=== PATIENT | male | born 1940 | race Caucasian/White ===

== ENCOUNTER 2020-02-11 13:12 | Inpatient (IN) | payer MEDICARE ==
--- NOTE | 2020-02-11 14:06 | EKG REPORT ---
SEVERITY:- ABNORMAL ECG - SINUS RHYTHM ATRIAL PREMATURE COMPLEX RIGHT BUNDLE BRANCH BLOCK BORDERLINE ST DEPRESSION, LATERAL LEADS : Confirmed by: Edmund Noriega MD 11-Feb-2020 14:05:49
--- NOTE | 2020-02-11 14:27 | RADIOLOGY REPORT (SQ) ---
EXAM DESCRIPTION: CHEST SINGLE VIEW IMAGES COMPLETED DATE/TIME: 02/11/2020 12:57 pm REASON FOR STUDY: chest pain COMPARISON: None. EXAM PARAMETERS: NUMBER OF VIEWS: One view. TECHNIQUE: Single frontal radiographic view of the chest acquired. RADIATION DOSE: NA LIMITATIONS: None. FINDINGS: LUNGS AND PLEURA: Mild ill-defined opacities in a peripheral distribution both lungs. Sandra gs are hyperinflated. No pleural effusion or pneumothorax. MEDIASTINUM AND HILAR STRUCTURES: No masses. Contour normal. HEART AND VASCULAR STRUCTURES: Heart normal in size. Normal vasculature. BONES: No acute findings. HARDWARE: None in the chest. OTHER: No other significant finding. IMPRESSION: Mild patchy peripheral opacities in both lungs may represent infectious/ inflammatory pr ocess. TECHNICAL DOCUMENTATION: JOB ID: [id number] 2010 [employer]- All Rights Reserved Reading location - IP/workstation name: [email or web address]
[2020-02-11 14:30] LABS: ABSOLUTE EOSINOPHILS # (AUTO) 0.1 10^3/uL (0.0-0.6); ABSOLUTE LYMPHOCYTES (AUTO) 0.6 10^3/uL (0.5-4.7); ABSOLUTE MONOCYTES (AUTO) 0.8 10^3/uL (0.1-1.4); ABSOLUTE NEUT (AUTO) 7.1 10^3/uL (1.7-8.2); BASOPHILS % (AUTO) 0.2 % (0-2); EOSINOPHILS % (AUTO) 1.1 % (0-6); HEMATOCRIT 34.6 % (37.9-51.0); HEMOGLOBIN 11.9 g/dL (13.5-17.0); LYMPHOCYTES % (AUTO) 7.1 % (13-45); MEAN CORPUSCULAR HEMOGLOBIN 30.8 pg (27.0-33.4); MEAN CORPUSCULAR HGB CONC 34.4 g/dL (32.0-36.0); MEAN CORPUSCULAR VOLUME 90 fl (80-97); MONOCYTES % (AUTO) 9.2 % (3-13); PLATELET COUNT 201 10^3/uL (150-450); RED BLOOD COUNT 3.86 10^6/uL (4.35-5.55); RED CELL DISTRIBUTION WIDTH 13.4 % (11.5-14.0); SEGMENTED NEUTROPHILS % (AUTO) 82.4 % (42-78); TOTAL CELLS COUNTED % (AUTO) 100 %; WHITE BLOOD COUNT 8.6 10^3/uL (4.0-10.5)
[2020-02-11 14:49] LABS: ALKALINE PHOSPHATASE 72 U/L (38-126); ANION GAP 6 (5-19); ASPARTATE AMINO TRANSFERASE 43 U/L (17-59); BILIRUBIN,TOTAL 0.4 mg/dL (0.2-1.3); BLOOD UREA NITROGEN 27 mg/dL (7-20); CALCIUM 9.3 mg/dL (8.4-10.2); CARBON DIOXIDE 30 mmol/L (22-30); CHLORIDE 93 mmol/L (98-107); CREATINE KINASE 227 U/L (55-170); GLUCOSE 143 mg/dL (75-110); POTASSIUM 4.3 mmol/L (3.6-5.0); TOTAL PROTEIN 7.7 g/dL (6.3-8.2)
[2020-02-11 14:59] LABS: CREATINE KINASE MB 5.58 ng/mL (<4.55); TROPONIN I 0.021 ng/mL
[2020-02-11] MEDS ORDERED: NITROGLYCERIN 2% OINTMENT 1 GM PACKET TP ONE (15:24)
[2020-02-11] MEDS ORDERED: ENALAPRILAT DIHYDRATE INJ/PF 1.25 MG/1 ML SDV IV ONE (15:24)
[2020-02-11] MEDS ORDERED: FUROSEMIDE INJ/PF 20 MG/2 ML SDV IV ONE (15:24)
[2020-02-11] MEDS ORDERED: ASPIRIN 81 MG TABLET, CHEWABLE PO ONE (15:25)
[2020-02-11 15:54] LABS: INTERNATIONAL RATION (INR) 1.77; PROTHROMBIN TIME 20.7 SEC (11.4-15.4)
[2020-02-11] MEDS ORDERED: IPRATROPIUM/ALBUTEROL 0.5-2.5 MG/3 ML AMPUL NEB ONE (15:54)
[2020-02-11] MEDS ORDERED: ONDANSETRON HCL INJ/PF 4 MG/2 ML SDV IV ONE (15:55)
[2020-02-11] MEDS ORDERED: MORPHINE SULFATE 10 MG/ML INJ IV ONE (15:55)
[2020-02-11] MEDS ORDERED: MAGNESIUM OXIDE 400 MG TABLET PO ONE (16:55)
--- NOTE | 2020-02-11 17:09 | ER Document Report ---
Entered by GABBI TRIPATHI SCRIBE 02/11/20 1525 Acting as scribe for:DELMAR STEVEN DO ED Respiratory Problem - General Chief Complaint: Chest Pain Stated Complaint: CHEST PAIN,SHORT OF BREATH Information source: Patient, Relative Notes: This 79 year old male patient presents to the emergency department today with a chief complaint of increased shortness of breath today. Patient states his sinuses had been congested the past x2-3 weeks and thought it was a sinus infection. Patient states the past x2-3 days he has been short of breath with exertion, such as walking to the mailbox, and reports increased shortness of breath today. Patient states he is on Coumadin (since 1987) and has checked his levels x4 the past week, with his last check 4.9 yesterday. Patient reports some swelling to his bilateral lower extremities L>R, and usually retains some fluid in his legs. Patient reports history of HTN, DM2, multiple pulmonary embolisms, and denies any fevers, history of heart disease, or stents. Patient states he is visiting here from [place]. - Related Data Allergies/Adverse Reactions: No Known Allergies Allergy (Unverified 02/11/20 14:16) Past Medical History - General Information source: Patient, Relative - Social History Smoking Status: Former Smoker Lives with: Family Family History: Reviewed & Not Pertinent - Past Medical History Cardiac Medical History: Reports: Hx Hypertension, Hx Pulmonary Embolism Denies: Hx Coronary Artery Disease Endocrine Medical History: Reports: Hx Diabetes Mellitus Type 2 Review of Systems - Review of Systems Constitutional: See HPI. denies: Fever EENT: See HPI, Nose congestion Cardiovascular: No symptoms reported Respiratory: See HPI, Short of breath Gastrointestinal: No symptoms reported Genitourinary: No symptoms reported Male Genitourinary: No symptoms reported Musculoskeletal: See HPI, Leg swelling - L>R Skin: No symptoms reported Hematologic/Lymphatic: No symptoms reported Neurological/Psychological: No symptoms reported -: Yes All other systems reviewed and negative Physical Exam - Vital signs Vitals: Temp Pulse Resp BP Pulse Ox 97.7 F 82 18 179/82 H 100 02/11/20 13:30 02/11/20 13:30 02/11/20 13:30 02/11/20 13:30 02/11/20 13:30 - General Notes: Alert. Appears uncomfortable and in mild-moderate distress from shortness of breath. - HEENT Head: Normocephalic, Atraumatic Eyes: Normal Pupils: PERRL - Respiratory Notes: Mild to moderate distress due to shortness of breath. Shortness of breath with conversation. Tachypnea. Minimal wheezing. Diminished breath sounds bilaterally. - Cardiovascular Rhythm: Regular Heart sounds: Normal auscultation Murmur: No - Abdominal Inspection: Obese Distension: No distension Bowel sounds: Normal Tenderness: Nontender - Extremities General upper extremity: Normal inspection, Normal ROM Notes: 3-4+ pitting edema to bilateral lower extremities. - Neurological Neuro grossly intact: Yes Cognition: Normal Orientation: AAOx4 Hooks Coma Scale Eye Opening: Spontaneous Hooks Coma Scale Verbal: Oriented Hooks Coma Scale Motor: Obeys Commands Adriane Coma Scale Total: 15 Speech: Normal Sensory: Normal - Psychological Associated symptoms: Normal affect, Normal mood - Skin Skin Temperature: Warm Skin Moisture: Diaphoretic Skin Color: Normal Course - Re-evaluation Re-evalutation: 02/11/20 17:05 MDM Elderly DM, htn, hld pt with acute dyspnea. He is sob at baseline and traveling. He has no known heart disease, but evaluation here is consistent with chf and he is treated for same with improvement of symptoms. Discussed with pt and and treatment plan and they expressed understanding. Discussed with Dr. Peck who has graciously agreed to see and evlauate for admission. - Vital Signs Vital signs: Temp Pulse Resp BP Pulse Ox 97.7 F 82 26 H 158/83 H 98 02/11/20 13:30 02/11/20 13:30 02/11/20 23:30 02/11/20 23:30 02/11/20 23:30 - Laboratory Results Result Diagrams: 02/11/20 13:54 02/11/20 13:54 Laboratory Results Interpreted: 02/11/20 02/11/20 02/11/20 13:54 13:54 13:54 RBC 3.86 L Hgb 11.9 L Hct 34.6 L Lymph % (Auto) 7.1 L Seg Neutrophils % 82.4 H PT D-Dimer Sodium 128.5 L Chloride 93 L BUN 27 H Glucose 143 H Creatine Kinase 227 H CK-MB (CK-2) 5.58 H NT-Pro-B Natriuret Pep 02/11/20 02/11/20 02/11/20 13:54 13:54 13:54 RBC Hgb Hct Lymph % (Auto) Seg Neutrophils % PT 20.7 H D-Dimer 0.63 H Sodium Chloride BUN Glucose Creatine Kinase CK-MB (CK-2) NT-Pro-B Natriuret Pep 764 H Critical Laboratory Results Reviewed: No Critical Results - Radiology Results Critical Radiology Results Reviewed: No Critical Results - EKG Interpretation by Me EKG shows normal: Sinus rhythm Rate: Normal Rhythm: NSR Clinton/QRS: Left axis deviation, RBBB - NSR RBBB [address] axis. No st elevation or depression my interpretation. Critical Care Note - Critical Care Note Total time excluding time spent on procedures (mins): 30 Discharge - Discharge Clinical Impression: Acute dyspnea CHF (congestive heart failure) Qualifiers: Heart failure type: unspecified Heart failure chronicity: acute Qualified Code(s): I50.9 - Heart failure, unspecified Hypertension Qualifiers: Hypertension type: unspecified Qualified Code(s): I10 - Essential (primary) hyp ertension Condition: Serious Disposition: ADMITTED INPATIENT Admitting Provider: Liv (Hospitalist) Unit Admitted: IMCU I personally performed the services described in the documentation, reviewed and edited the documentation which was dictated to the scribe in my presence, and it accurately records my words and actions.
[2020-02-11] MEDS ORDERED: ACETAMINOPHEN 325 MG TABLET PO PRN ×2 (18:39→22:30)
[2020-02-11] MEDS ORDERED: ONDANSETRON HCL INJ/PF 4 MG/2 ML SDV IV PRN (18:39)
[2020-02-11] MEDS ORDERED: IPRATROPIUM/ALBUTEROL 0.5-2.5 MG/3 ML AMPUL NEB PRN (18:39)
[2020-02-11] MEDS ORDERED: DEXTROSE 50%-WATER 25 GM/50 ML DISP.SYRIN IV PRN ×2 (18:46)
[2020-02-11] MEDS ORDERED: DEXTROSE 40% GEL 15 GM TUBE PO PRN ×2 (18:46)
[2020-02-11] MEDS ORDERED: GLUCAGON,HUMAN RECOMB 1 MG INJ IM PRN (18:46)
[2020-02-11] MEDS ORDERED: LORAZEPAM INJ 2 MG/1 ML VIAL IV PRN (19:45)
[2020-02-11] MEDS ORDERED: NITROGLYCERIN 0.4 MG/TAB 25 TAB/BOTTLE SL PRN (19:58)
--- NOTE | 2020-02-11 20:02 | PDOC H&P ---
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 Patient has been having on and off shortness of breath for the past few months. He developed dyspnea on exertion about 4 days prior and this has gotten progressively worse. Today his discharge expression acutely worsened hence he came to the ED. He also reported increased leg swelling more than his usual, orthopnea, weight gain. He also reported left-sided chest pain that lasted for an hour which spontaneously resolved. He denied any syncope, no diaphoresis, no palpitations. He had some nonproductive cough but no fever. In the ED blood pressure was noted to be 229/117, rate of 83, very rate 25, temperature 97.7, O2 sat 89% on room air. CBC is unremarkable, CMP showed sodium of 128, troponin 0.021, BNP 764. Chest x-ray showed mild patchy periph eral opacities in both lungs may represent infectious/inflammatory process. CRP was normal. He denied any prior history of congestive heart failure however he does have sleep apnea and was supposed to be on CPAP but he has stopped using this for a few years now because he could not tolerate it. He also drinks 6 cans of beer every day. She was given Vasotec IV, nitroglycerin IV Lasix. Hospitalist service was consulted for further evaluation and management. 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 Patient understands what a DO NOT RESUSCITATE CODE STATUS implies and affirms that he wants to be DNR. He also named his Summer as his healthcare power of commercial litigation attorney. Family History Family History: Reviewed & Not Pertinent Parental Family History Reviewed: No Children Family History Reviewed: No Sibling(s) Family History Reviewed.: No Medication/Allergy Allergies/Adverse Reactions: No Known Allergies Allergy (Unverified 02/11/20 14:16) Review of Systems Constitutional: PRESENT: fatigue, weight gain Eyes: ABSENT: visual disturbances Ears: ABSENT: hearing changes Nose, Mouth, and Throat: ABSENT: mouth pain, sore throat Cardiovascular: PRESENT: chest pain, dyspnea on exertion, edema, orthropnea Respiratory: PRESENT: cough, dyspnea. ABSENT: hemoptysis Gastrointestinal: ABSENT: diarrhea Musculoskeletal: ABSENT: deformity Neurological: ABSENT: abnormal gait Psychiatric: ABSENT: hallucinations Physical Exam Vital Signs: Temp Pulse Resp BP Pulse Ox 97.7 F 82 16 149/80 H 97 02/11/20 13:30 02/11/20 13:30 02/11/20 17:16 02/11/20 17:16 02/11/20 17:16 Intake & Output 02/10/20 02/11/20 02/12/20 06:59 06:59 06:59 Weight 102.6 kg General appearance: PRESENT: cooperative, mild distress Head exam: PRESENT: atraumatic, normocephalic Eye exam: PRESENT: EOMI, PERRLA Mouth exam: PRESENT: moist Neck exam: PRESENT: full ROM Respiratory exam: PRESENT: crackles, rales, symmetrical, unlabored Cardiovascular exam: PRESENT: +S1, +S2, tachycardia Pulses: PRESENT: +2 pedal pulses bilateral GI/Abdominal exam: PRESENT: distended, normal bowel sounds, soft. ABSENT: tenderness Extremities exam: PRESENT: +2 edema Musculoskeletal exam: PRESENT: full ROM Neurological exam: PRESENT: alert, awake, oriented to person, oriented to place, oriented to time, oriented to situation Psychiatric exam: PRESENT: normal mood Skin exam: PRESENT: normal color Results Laboratory Results: 02/11/20 13:54 02/11/20 13:54 02/11/20 02/11/20 02/11/20 13:54 13:54 13:54 WBC 8.6 RBC 3.86 L Hgb 11.9 L Hct 34.6 L MCV 90 MCH 30.8 MCHC 34.4 RDW 13.4 Plt Count 201 Seg Neutrophils % 82.4 H Sodium 128.5 L Potassium 4.3 Chloride 93 L Carbon Dioxide 30 Anion Gap 6 BUN 27 H Creatinine 1.04 Est GFR ( Amer) > 60 Glucose 143 H Lactic Acid Calcium 9.3 Magnesium 2.0 Total Bilirubin 0.4 AST 43 Alkaline Phosphatase 72 C-Reactive Protein Total Protein 7.7 Albumin 4.0 02/11/20 02/11/20 13:54 15:19 WBC RBC Hgb Hct MCV MCH MCHC RDW Plt Count Seg Neutrophils % Sodium Potassium Chloride Carbon Dioxide Anion Gap BUN Creatinine Est GFR ( Amer) Glucose Lactic Acid 0.7 Calcium Magnesium Total Bilirubin AST Alkaline Phosphatase C-Reactive Protein < 5.0 Total Protein Albumin 02/11/20 02/11/20 02/11/20 13:54 13:54 13:54 Creatine Kinase 227 H CK-MB (CK-2) 5.58 H Troponin I 0.021 Cancelled NT-Pro-B Natriuret Pep 764 H 02/11/20 16:30 Creatine Kinase CK-MB (CK-2) Troponin I 0.025 NT-Pro-B Natriuret Pep Impressions: Chest X-Ray 02/11/20 13:26 IMPRESSION: Mild patchy peripheral opacities in both lungs may represent infectious/ inflammatory process. Assessment and Plan - Diagnosis (1) Hypertensive emergency Is this a current diagnosis for this admission?: Yes Plan: -Pressure 223/119 associated with dyspnea on exertion and troponin leak -BNP 764 -Given Vasotec, Lasix, nitroglycerin in the ED -Started on Lasix 40 IV twice daily for suspected new onset congestive heart failure -Amlodipine and lisinopril resumed -CTA chest pending -Echo in the morning (2) NSTEMI (non-ST elevated myocardial infarction) Is this a current diagnosis for this admission?: Yes Plan: -Troponin 0.021 -EKG sinus rhythm, right bundle branch block -This is likely secondary to hypertensive emergency -Given aspirin, moprhine and nitroglycerin in the ED -Continue aspirin, statin, lisinopril -She is already on warfarin for history of pulmonary embolism (3) Type 2 diabetes mellitus Qualifiers: Diabetes mellitus group home insulin use: with group home use Diabetes cindi litus complication status: without complication Qualified Code(s): E11.9 - Type 2 diabetes mellitus without complications; Z79.4 - USP (current) use of insulin Is this a current diagnosis for this admission?: Yes Plan: -Lantus 30 units in the morning -Sliding scale insulin, Accu-Cheks, hypoglycemia protocol. (4) HLD (hyperlipidemia) Qualifiers: Hyperlipidemia type: unspecified Qualified Code(s): E78.5 - Hyperlipidemia, unspecified Is this a current diagnosis for this admission?: Yes Plan: -Resume statin (5) Sleep apnea Qualifiers: Sleep apnea type: obstructive Qualified Code(s): G47.33 - Obstructive sleep apnea (adult) (pediatric) Is this a current diagnosis for this admission?: Yes Plan: -Noncompliant with his CPAP (6) Personal history of pulmonary embolism Is this a current diagnosis for this admission?: Yes Plan: -Story of pulmonary embolism back in 1988 and has been on Coumadin since then\ -Coumadin resumed 7.5 mg daily -Daily INR (7) Hypertension Qualifiers: Hypertension type: unspecified Qualified Code(s): I10 - Essential (primary) hypertension Is this a current diagnosis for this admission?: Yes Plan: -Resumed amlodipine and lisinopril - Time Time Spent with patient: 25-34 minutes Anticipated Discharge Disposition: Home with Home Health Anticipated Discharge Timeframe: tbd - Inpatient Certification Based on my medical assessment, after consideration of the patient's comorbidities, presenting symptoms, or acuity I expect that the services needed warrant INPATIENT care.: Yes I certify that my determination is in accordance with my understanding of Medicare's requirements for reasonable and necessary INPATIENT services [42 CFR 412.3e].: Yes Medical Necessity: Risk of Complication if Not Cared For in Hospital
[2020-02-11] MEDS: LISINOPRIL 10 MG TABLET PO SCH (20:07)
[2020-02-11] MEDS: POTASSIUM CHLORIDE 20 MEQ PACKET PO SCH (20:08)
[2020-02-11] MEDS: AMLODIPINE BESYLATE 10 MG TABLET PO SCH (20:08)
[2020-02-11] MEDS ORDERED: WARFARIN SODIUM 7.5 MG TABLET PO SCH (22:00)
--- NOTE | 2020-02-11 22:20 | RADIOLOGY REPORT (SQ) ---
EXAM DESCRIPTION: CTA CHEST CLINICAL HISTORY: 79 years Male; r/o aortic dissection or PE chest pain. TECHNIQUE: CT angiogram of the chest using intravenous contrast.. MIP reconstructions were performed. All CT scans at this facility use dose modulation, iterative reconstruction, and/or weight based dosing when appropriate to reduce radiation dose to as low as reasonably achievable. COMPARISON: None. FINDINGS: Chest: Vascular: Exam is of diagnostic quality. There is no evidence of pulmonary artery embolization bilaterally. Pulmonary arteries are enlarged. The right main pulmonary artery is 3.2 cm. The left is 2.7 cm. This suggest pulmonary artery hypertension. Thoracic aorta is of normal caliber with scattered vascular plaque. The proximal great vessels are patent. No aneurysm. No dissection. Lungs: Small to moderate bilateral pleural effusions are noted. There is engorgement of the central pulmonary vessels and patchy hazy groundglass opacification bilaterally. This is seen predominantly layering in a dependent fashion in the chest and suggest pulmonary edema. More focal volume loss is noted in the lower lobes. Viral infection such as Covid cannot be excluded. No pneumothorax. Mediastinum: Heart is at upper limits of normal size. There is calcification in the aortic valve, mitral valve and coronary arteries. No pericardial abnormality. There are small, nonspecific mediastinal lymph nodes. Some of these lymph nodes are calcified. This suggests previous granulomatous infection. Bones and soft tissues: Anterior endplate spondylosis is noted. No destructive bone lesions. The sternum is intact. Soft tissues of the chest wall are unremarkable. Upper Abdomen: Probable cyst in the left kidney. IMPRESSION: 1. No pulmonary artery embolization. No aortic dissection. 2. Enlargement of the pulmonary arteries raising the possibility pulmonary artery hypertension. In addition the heart size is enlarged and there is bilateral pleural effusions and findings suggestive of pulmonary edema. 3. Round glass opacification seen layering in a dependent fashion. This most likely is related to pulmonary edema viral pneumonia cannot be excluded. More focal consolidation and volume loss is noted in the lung bases posteriorly.
[2020-02-11] MEDS: INSULIN LISPRO 100 UNIT/ML 3 ML VIAL SUBCUT SCH (22:21)
[2020-02-11] MEDS: FUROSEMIDE INJ/PF 40 MG/4 ML SDV IV SCH (23:30)
[2020-02-12 04:54] LABS: ABSOLUTE EOSINOPHILS # (AUTO) 0.1 10^3/uL (0.0-0.6); ABSOLUTE LYMPHOCYTES (AUTO) 0.8 10^3/uL (0.5-4.7); ABSOLUTE NEUT (AUTO) 6.5 10^3/uL (1.7-8.2); BASOPHILS % (AUTO) 0.5 % (0-2); EOSINOPHILS % (AUTO) 0.8 % (0-6); HEMOGLOBIN 11.3 g/dL (13.5-17.0); LYMPHOCYTES % (AUTO) 9.8 % (13-45); MEAN CORPUSCULAR HEMOGLOBIN 31.4 pg (27.0-33.4); MEAN CORPUSCULAR HGB CONC 35.3 g/dL (32.0-36.0); MEAN CORPUSCULAR VOLUME 89 fl (80-97); PLATELET COUNT 187 10^3/uL (150-450); RED CELL DISTRIBUTION WIDTH 13.4 % (11.5-14.0); SEGMENTED NEUTROPHILS % (AUTO) 76.9 % (42-78); TOTAL CELLS COUNTED % (AUTO) 100 %; WHITE BLOOD COUNT 8.4 10^3/uL (4.0-10.5)
[2020-02-12 05:13] LABS: ALBUMIN 3.8 g/dL (3.5-5.0); ALKALINE PHOSPHATASE 65 U/L (38-126); ANION GAP 6 (5-19); ASPARTATE AMINO TRANSFERASE 44 U/L (17-59); BILIRUBIN,TOTAL 0.9 mg/dL (0.2-1.3); BLOOD UREA NITROGEN 25 mg/dL (7-20); CALCIUM 9.1 mg/dL (8.4-10.2); CARBON DIOXIDE 33 mmol/L (22-30); CHLORIDE 91 mmol/L (98-107); CHOLESTEROL 154.44 mg/dL (0-200); GLUCOSE 140 mg/dL (75-110); POTASSIUM 4.5 mmol/L (3.6-5.0); TOTAL PROTEIN 7.1 g/dL (6.3-8.2); TRIGLYCERIDES 92 mg/dL (<150)
[2020-02-12 05:23] LABS: DIRECT LDL 65 mg/dL (<100)
[2020-02-12 05:26] LABS: PROTHROMBIN TIME 23.6 SEC (11.4-15.4)
[2020-02-12] MEDS ORDERED: INSULIN GLARGINE,HUM.REC.ANLOG 1,000 UNIT/10 ML VIAL SUBCUT SCH (08:00)
[2020-02-12] MEDS: FUROSEMIDE INJ/PF 40 MG/4 ML SDV IV SCH (09:30)
[2020-02-12] MEDS: POTASSIUM CHLORIDE 20 MEQ PACKET PO SCH (09:30)
[2020-02-12] MEDS: INSULIN LISPRO 100 UNIT/ML 3 ML VIAL SUBCUT SCH ×2 (09:32→12:13)
[2020-02-12] MEDS: AMLODIPINE BESYLATE 10 MG TABLET PO SCH (09:33)
[2020-02-12] MEDS: LISINOPRIL 10 MG TABLET PO SCH (09:33)
[2020-02-12] MEDS ORDERED: METOPROLOL TARTRATE 25 MG TABLET PO SCH (10:00)
[2020-02-12] MEDS ORDERED: ASPIRIN 81 MG TABLET, CHEWABLE PO SCH (10:00)
[2020-02-12] MEDS ORDERED: ENOXAPARIN SODIUM INJ 100 MG/1 ML DISP.SYRIN SUBCUT SCH (10:45)
--- NOTE | 2020-02-12 12:08 | PDOC CONSULTATION ---
Consultation Consult Date: 02/12/20 Attending physician:: MARAH QUINTERO Provider Consulted: TIERRA MARTINEZ Consult reason:: Elevated troponin History of Present Illness Admission Date/PCP: 02/11/20 23:27 Patient complains of: Chest pain History of Present Illness: BRADLEY CORONADO is a 79 year old male With the following active problems With the following active problems 1. Pulmonary embolism 2. DVT 3. Chronic anticoagulation-warfarin 4. Systemic hypertension 5. Dyslipidemia 6. Obstructive sleep apnea 79-year-old male with problems as above reports having had episodes of exertional dyspnea since October. These are sporadic episodes. Most recent episode was yesterday when he developed an urge to go to the bathroom but was uncomfortable and subsequently after finding himself short of breath he also experienced precordial chest pain. This brought him to the hospital. Patient recalls another episode a few days ago when he walked to the mailbox as well. Patient is very active. He has annual cardiology evaluations with his cardiol ogist in [place]. His most recent stress test was last year and apparently was unremarkable. Patient reports remote cardiac catheterization several years ago which was unremarkable. He is not compliant with CPAP. He drinks about 6 cans of beer a day. No tobacco use is reported. Used to smoke cigarettes previously. No familial illnesses reported. 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 Social History Lives with: Family Smoking Status: Former Smoker Frequency of Alcohol Use: Heavy Hx Recreational Drug Use: No - Advance Directive Resuscitation Status: Do Not Resuscitate Family History Family History: Reviewed & Not Pertinent Parental Family History Reviewed: Yes - No familial illnesses Children Family History Reviewed: NA Sibling(s) Family History Reviewed.: NA Medication/Allergy Home Medications: Glipizide [Glipizide Xl] 10 mg PO BID 02/12/20 Lisinopril/Hydrochlorothiazide [Lisinopril-Hctz 20-25 mg Tab] 1 each PO DAILY 02/12/20 Meloxicam [Mobic 7.5 Mg Tablet] 7.5 mg PO QPM 12/28/20 Simvastatin 80 mg PO DAILY 02/12/20 Warfarin Sodium [Jantoven 7.5 mg Tablet] 7.5 mg PO ASDIR PRN 02/12/20 Warfarin Sodium [Jantoven] 10 mg PO ASDIR PRN 02/12/20 Allergies/Adverse Reactions: No Known Allergies Allergy (Unverified 02/11/20 14:16) Review of Systems Nose, Mouth, and Throat: PRESENT: as per HPI Cardiovascular: PRESENT: as per HPI, chest pain, dyspnea on exertion Gastrointestinal: PRESENT: as per HPI Genitourinary: PRESENT: difficulty urinating Physical Exam Vital Signs: Temp Pulse Resp BP Pulse Ox 97.7 F 66 16 135/72 H 98 02/11/20 13:30 02/12/20 11:10 02/12/20 11:10 02/12/20 07:01 02/12/20 11:10 Intake & Output 02/11/20 02/12/20 02/13/20 06:59 06:59 06:59 Output Total 1550 Balance -1550 Weight 102.6 kg General appearance: PRESENT: no acute distress, cooperative, well-developed, well-nourished Head exam: PRESENT: atraumatic, normocephalic Eye exam: PRESENT: conjunctiva pink Respiratory exam: PRESENT: clear to auscultation radha, symmetrical, unlabored Cardiovascular exam: PRESENT: +S1, +S2, systolic murmur Pulses: PRESENT: normal radial pulses GI/Abdominal exam: PRESENT: soft Rectal exam: PRESENT: deferred Neurological exam: PRESENT: alert, awake, oriented to person, oriented to place, oriented to time, oriented to situation Psychiatric exam: PRESENT: appropriate affect Skin exam: PRESENT: dry, intact, normal color Results Laboratory Results: 02/12/20 04:36 02/12/20 04:36 02/11/20 02/11/20 02/11/20 13:54 13:54 13:54 WBC 8.6 RBC 3.86 L Hgb 11.9 L Hct 34.6 L MCV 90 MCH 30.8 MCHC 34.4 RDW 13.4 Plt Count 201 Seg Neutrophils % 82.4 H Sodium 128.5 L Potassium 4.3 Chloride 93 L Carbon Dioxide 30 Anion Gap 6 BUN 27 H Creatinine 1.04 Est GFR ( Amer) > 60 Glucose 143 H Lactic Acid Calcium 9.3 Magnesium 2.0 Total Bilirubin 0.4 AST 43 Alkaline Phosphatase 72 C-Reactive Protein Total Protein 7.7 Albumin 4.0 Triglycerides Cholesterol LDL Cholesterol Direct VLDL Cholesterol HDL Cholesterol 02/11/20 02/11/20 02/12/20 13:54 15:19 04:36 WBC 8.4 RBC 3.60 L Hgb 11.3 L Hct 32.0 L MCV 89 MCH 31.4 MCHC 35.3 RDW 13.4 Plt Count 187 Seg Neutrophils % 76.9 Sodium Potassium Chloride Carbon Dioxide Anion Gap BUN Creatinine Est GFR ( Amer) Glucose Lactic Acid 0.7 Calcium Magnesium Total Bilirubin AST Alkaline Phosphatase C-Reactive Protein < 5.0 Total Protein Albumin Triglycerides Cholesterol LDL Cholesterol Direct VLDL Cholesterol HDL Cholesterol 02/12/20 04:36 WBC RBC Hgb Hct MCV MCH MCHC RDW Plt Count Seg Neutrophils % Sodium 130.3 L Potassium 4.5 Chloride 91 L Carbon Dioxide 33 H Anion Gap 6 BUN 25 H Creatinine 1.12 Est GFR ( Amer) > 60 Glucose 140 H Lactic Acid Calcium 9.1 Magnesium Total Bilirubin 0.9 AST 44 Alkaline Phosphatase 65 C-Reactive Protein Total Protein 7.1 Albumin 3.8 Triglycerides 92 Cholesterol 154.44 LDL Cholesterol Direct 65 VLDL Cholesterol 18.0 HDL Cholesterol 81 02/11/20 02/11/20 02/11/20 13:54 13:54 13:54 Creatine Kinase 227 H CK-MB (CK-2) 5.58 H Troponin I 0.021 Cancelled NT-Pro-B Natriuret Pep 764 H 02/11/20 02/11/20 02/12/20 16:30 22:20 04:36 Creatine Kinase CK-MB (CK-2) Troponin I 0.025 0.026 0.043 NT-Pro-B Natriuret Pep 02/12/20 10:10 Creatine Kinase CK-MB (CK-2) Troponin I 0.028 NT-Pro-B Natriuret Pep EKG Comments: 12 twelve-lead EKG 02/11/2020. 1320 independently viewed by me. Sinus rhythm, baseline wander, right bundle branch block, ventricular rate is 81 bpm, borderline ST depression in multiple leads, mild ST elevation in aVR Twelve-lead EKG 1228 2019-12-20. Independently viewed by me. Sinus rhythm, 71 bpm, right bundle branch block, baseline artifact, Cardiac troponin 02/11/2020 3054-0.021 02/11/2020 1630-0.025 02/11/2020 2220-0.026 02/12/2020 2436-0.043 1228 2019-11-25-0.028 Transthoracic echocardiogram images interpreted at the bedside. Grossly preserved LV ejection fraction. At least moderate aortic stenosis. Calcific aortic and mitral valves. CTA 02/11/2020 No pulmonary artery embolization or aortic dissection. Enlargement of the pulmonary arteries Focal consolidation volume loss noted in the lung bases posteriorly. Groundglass opacities. Chest x-ray 02/11/2020 1326 Mildly patchy peripheral opacities Impressions: Chest/Abdomen CTA 02/11/20 00:00 IMPRESSION: 1. No pulmonary artery embolization. No aortic dissection. 2. Enlargement of the pulmonary arteries raising the possibility pulmonary artery hypertension. In addition the heart size is enlarged and there is bilateral pleural effusions and findings suggestive of pulmonary edema. 3. Round glass opacification seen layering in a dependent fashion. This most likely is related to pulmonary edema viral pneumonia cannot be excluded. More focal consolidation and volume loss is noted in the lung bases posteriorly. Chest X-Ray 02/11/20 13:26 IMPRESSION: Mild patchy peripheral opacities in both lungs may represent infectious/ inflammatory process. Assessment & Plan - Diagnosis (1) Aortic stenosis Qualifiers: Cardiac valve disease etiology: nonrheumatic Qualified Code(s): I35.0 - Nonrheumatic aortic (valve) stenosis Is this a current diagnosis for this admission?: Yes Plan: Incidental finding of aortic stenosis. His aortic valve appears to be calcified and narrowed. We will interpret echocardiogram images formally. (2) RBBB Is this a current diagnosis for this admission?: Yes Plan: Manifest conduction disease without any bradycardia. With to be followed. (3) CHF (congestive heart failure) Qualifiers: Heart failure type: unspecified Heart failure chronicity: acute Qualified Code(s): I50.9 - Heart failure, unspecified Is this a current diagnosis for this admission?: Yes Plan: Some symptoms are suggestive of congestive heart failure. We will interpret echocardiogram formally. No added salt in the diet Consider low-dose diuretic (4) NSTEMI (non-ST elevated myocardial infarction) Is this a current diagnosis for this admission?: Yes Plan: Mild elevated troponin with symptoms including exertional dyspnea as well as chest pain. Multiple risk factors for coronary artery disease with stress test hitherto being unremarkable as reported by patient. 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 Given presence of risk factors and concerning nature of chest pain and with elevated cardiac biomarkers cardiac catheterization will be the ideal approach. I discussed this with the patient and patient is agreeable The procedure of cardiac authorization was discussed as well as risks and benefits and any complications that could arise. Outcomes include the stent placement and bypass surgery as well as medical management management. Patient understands and is willing to proceed with the plan needed. Patient will be transferred to [facility] to the cardiac outpatient unit for cardiac catheterization on Wednesday with Dr. Gregg. We will hold systemic anticoagulation with warfarin. Initiate enoxaparin weight-based full dose tomorrow. If the patient experiences chest pain would consider this earlier. Aspirin 81 mg daily Continue metoprolol at current dose Continue statin therapy (5) Personal history of pulmonary embolism Is this a current diagnosis for this admission?: Yes Plan: CT images do not support pulmonary embolism. INR is therapeutic Hold warfarin in anticipation of cardiac authorization. (6) Warfarin anticoagulation Is this a current diagnosis for this admission?: Yes Plan: Warfarin anticoagulation is indicated for DVT abdominal embolism This is being held in anticipation of cardiac authorization We will use enoxaparin
--- NOTE | 2020-02-12 12:12 | PDOC TRANSFER SUMMARY ---
General Admission Date/PCP: 02/11/20 23:27 Resuscitation Status: Do Not Resuscitate - Transfer Diagnosis (1) Aortic stenosis Is this a current diagnosis for this admission?: Yes (2) RBBB Is this a current diagnosis for this admission?: Yes (3) CHF (congestive heart failure) Is this a current diagnosis for this admission?: Yes (4) NSTEMI (non-ST elevated myocardial infarction) Is this a current diagnosis for this admission?: Yes (5) Personal history of pulmonary embolism Is this a current diagnosis for this admission?: Yes (6) Warfarin anticoagulation Is this a current diagnosis for this admission?: Yes - Transfer Medications Home Medications: Glipizide [Glipizide Xl] 10 mg PO BID 02/12/20 Lisinopril/Hydrochlorothiazide [Lisinopril-Hctz 20-25 mg Tab] 1 each PO DAILY 02/12/20 Meloxicam [Mobic 7.5 Mg Tablet] 7.5 mg PO QPM 02/12/20 Simvastatin 80 mg PO DAILY 02/12/20 Warfarin Sodium [Jantoven 7.5 mg Tablet] 7.5 mg PO ASDIR PRN 02/12/20 Warfarin Sodium [Jantoven] 10 mg PO ASDIR PRN 02/12/20 Transfer Medications: Current Medications Acetaminophen (Acetaminophen 325 Mg Tablet) 650 mg PO Q4HP PRN PRN Reason: FEVER >101 Stop: 03/12/20 22:29 Albuterol/Ipratropium (Ipratropium/Albuterol 0.5-2.5 Mg/3 Ml Ampul) 3 ml NEB RTQ4HP PRN PRN Reason: SHORTNESS OF BREATH Stop: 03/12/20 18:38 Amlodipine Besylate (Amlodipine Besylate 10 Mg Tablet) 10 mg PO DAILY [facility] Stop: 03/12/20 18:59 Last Admin: 02/12/20 09:33 Dose: 10 mg Documented by: Aspirin (Aspirin 81 Mg Tablet, Chewable) 81 mg PO DAILY [facility] Stop: 03/13/20 09:59 Last Admin: 02/12/20 09:33 Dose: 81 mg Documented by: Atorvastatin Calcium (Atorvastatin Calcium 80 Mg Tablet) 80 mg PO QHS [facility] Stop: 03/13/20 21:59 Dextrose (Dextrose 50%-Water 25 Gm/50 Ml Disp.Syrin) 12.5 gm IV PRN PRN; Protocol PRN Reason: FOR BG 50-69 IN ALERT PATIENT Stop: 03/12/20 18:45 Dextrose (Dextrose 50%-Water 25 Gm/50 Ml Disp.Syrin) 25 gm IV PRN PRN; Protocol PRN Reason: PER PROTOCOL Stop: 03/12/20 18:45 Furosemide (Furosemide Inj/Pf 40 Mg/4 Ml Sdv) 40 mg IV Q12 [facility] Stop: 03/12/20 21:59 Last Admin: 02/12/20 09:30 Dose: 40 mg Documented by: Glucagon (Glucagon,Human Recomb 1 Mg Inj) 1 mg IM PRN PRN; Protocol PRN Reason: Evaluate for BG < 70 Stop: 03/12/20 18:45 Glucose (Dextrose 40% Gel 15 Gm Tube) 15 gm PO PRN PRN; Protocol PRN Reason: FOR BG 50-69 IN ALERT PATIENT Stop: 03/12/20 18:45 Glucose (Dextrose 40% Gel 15 Gm Tube) 30 gm PO PRN PRN; Protocol PRN Reason: FOR BG < 50 IN ALERT PATIENT Stop: 03/12/20 18:45 Insulin Glargine (Insulin Glargine,Hum.Rec.Anlog 1,000 Unit/10 Ml Vial) 30 [place] [facility] [place]: 03/13/20 07:59 Last Admin: 02/12/20 09:31 Dose: 30 unit Documented by: Insulin Human Lispro (Insulin Lispro 100 Unit/Ml 3 Ml Vial) 0 - 12 unit SUBCUT [facility]; Protocol Stop: 03/12/20 21:59 Last Admin: 02/12/20 09:32 Dose: 2 unit Documented by: Lisinopril (Lisinopril 10 Mg Tablet) 20 mg PO DAILY [facility] Stop: 03/12/20 18:59 Last Admin: 02/12/20 09:33 Dose: 20 mg Documented by: Lorazepam (Lorazepam Inj 2 Mg/1 Ml Vial) 1 mg IV Q2HP PRN PRN Reason: ANXIETY/AGITATION Stop: 02/18/20 19:44 Metoprolol Tartrate (Metoprolol Tartrate 25 Mg Tablet) 12.5 mg PO Q12 [facility] Stop: 03/13/20 09:59 Last Admin: 02/12/20 11:46 Dose: 12.5 mg Documented by: Nitroglycerin (Nitroglycerin 0.4 Mg/Tab 25 Tab/Bottle) 1 tab SL Q5MP PRN PRN Reason: FOR CHEST PAIN Stop: 03/12/20 19:57 Ondansetron HCl (Ondansetron Hcl Inj/Pf 4 Mg/2 Ml Sdv) 4 mg IV Q8HP PRN PRN Reason: FOR NAUSEA/VOMITING Stop: 03/12/20 18:38 Potassium Chloride (Potassium Chloride 20 Meq Packet) 20 meq PO DAILY [facility] Stop: 03/12/20 18:44 Last Admin: 02/12/20 09:30 Dose: 20 meq Documented by: - Allergies Allergies/Adverse Reactions: No Known Allergies Allergy (Unverified 02/11/20 14:16) Hospital Course Hospital Course: Patient admitted to outside [facility] with complaints of chest pain and mildly elevated cardiac biomarkers. Multiple risk factors for coronary artery disease exist in this patient. Remote cardiac authorization several years ago was unremarkable palpation. Most recent stress test were also unremarkable per patient. EKG is mildly abnormal with sinus rhythm, right bundle branch block with diffuse ST depressions as well as mild ST elevation in aVR. Description of symptoms including exertional dyspnea and chest pain is concerning for underlying coronary artery disease. The best approach she would be to consider cardiac catheterization he does have valvular lesion as well. I discussed the case with outboard motor inspector Dr. Gregg at [place]. He is currently accepted the patient for cardiac authorization on Wednesday at the cardiac outpatient unit in [place] at [facility] In anticipation of this and since patient is agreeable we will hold warfarin anticoagulation and bridged with enoxaparin. Meanwhile since cardiac biomarkers are elevated we will treat him for acute coronary syndrome with guideline directed medical therapy Continue aspirin 81 mg daily Continue statin current dose Continue metoprolol at current dose Physical Exam Vital Signs: Temp Pulse Resp BP Pulse Ox 97.7 F 66 16 135/72 H 98 02/11/20 13:30 02/12/20 11:10 02/12/20 11:10 02/12/20 07:01 02/12/20 11:10 Intake & Output 02/11/20 02/12/20 02/13/20 06:59 06:59 06:59 Output Total 1550 Balance -1550 Weight 102.6 kg General appearance: PRESENT: no acute distress, cooperative Head exam: PRESENT: atraumatic, normocephalic Eye exam: PRESENT: conjunctiva pink, EOMI Respiratory exam: PRESENT: crackles, symmetrical Cardiovascular exam: PRESENT: RRR, +S1, +S2, systolic murmur Pulses: PRESENT: normal radial pulses Neurological exam: PRESENT: alert, awake, oriented to person, oriented to place, oriented to time, oriented to situation Psychiatric exam: PRESENT: appropriate affect Skin exam: PRESENT: dry, intact Results Laboratory Results: 02/12/20 04:36 02/12/20 04:36 02/11/20 02/11/20 02/11/20 13:54 13:54 13:54 WBC 8.6 RBC 3.86 L Hgb 11.9 L Hct 34.6 L MCV 90 MCH 30.8 MCHC 34.4 RDW 13.4 Plt Count 201 Seg Neutrophils % 82.4 H Sodium 128.5 L Potassium 4.3 Chloride 93 L Carbon Dioxide 30 Anion Gap 6 BUN 27 H Creatinine 1.04 Est GFR ( Amer) > 60 Glucose 143 H Lactic Acid Calcium 9.3 Magnesium 2.0 Total Bilirubin 0.4 AST 43 Alkaline Phosphatase 72 C-Reactive Protein Total Protein 7.7 Albumin 4.0 Triglycerides Cholesterol LDL Cholesterol Direct VLDL Cholesterol HDL Cholesterol 02/11/20 02/11/20 02/12/20 13:54 15:19 04:36 WBC 8.4 RBC 3.60 L Hgb 11.3 L Hct 32.0 L MCV 89 MCH 31.4 MCHC 35.3 RDW 13.4 Plt Count 187 Seg Neutrophils % 76.9 Sodium Potassium Chloride Carbon Dioxide Anion Gap BUN Creatinine Est GFR ( Amer) Glucose Lactic Acid 0.7 Calcium Magnesium Total Bilirubin AST Alkaline Phosphatase C-Reactive Protein < 5.0 Total Protein Albumin Triglycerides Cholesterol LDL Cholesterol Direct VLDL Cholesterol HDL Cholesterol 02/12/20 04:36 WBC RBC Hgb Hct MCV MCH MCHC RDW Plt Count Seg Neutrophils % Sodium 130.3 L Potassium 4.5 Chloride 91 L Carbon Dioxide 33 H Anion Gap 6 BUN 25 H Creatinine 1.12 Est GFR ( Amer) > 60 Glucose 140 H Lactic Acid Calcium 9.1 Magnesium Total Bilirubin 0.9 AST 44 Alkaline Phosphatase 65 C-Reactive Protein Total Protein 7.1 Albumin 3.8 Triglycerides 92 Cholesterol 154.44 LDL Cholesterol Direct 65 VLDL Cholesterol 18.0 HDL Cholesterol 81 02/11/20 02/11/20 02/11/20 13:54 13:54 13:54 Creatine Kinase 227 H CK-MB (CK-2) 5.58 H Troponin I 0.021 Cancelled NT-Pro-B Natriuret Pep 764 H 02/11/20 02/11/20 02/12/20 16:30 22:20 04:36 Creatine Kinase CK-MB (CK-2) Troponin I 0.025 0.026 0.043 NT-Pro-B Natriuret Pep 02/12/20 10:10 Creatine Kinase CK-MB (CK-2) Troponin I 0.028 NT-Pro-B Natriuret Pep EKG Comments: 12 twelve-lead EKG 02/11/2020. 1320 independently viewed by me. Sinus rhythm, baseline wander, right bundle branch block, ventricular rate is 81 bpm, borderline ST depression in multiple leads, mild ST elevation in aVR Twelve-lead EKG 1228 2019-12-20. Independently viewed by me. Sinus rhythm, 71 bpm, right bundle branch block, baseline artifact, Cardiac troponin 02/11/2020 3054-0.021 02/11/2020 1630-0.025 02/11/2020 2220-0.026 02/12/2020 2436-0.043 1228 2019-11-25-0.028 Transthoracic echocardiogram images interpreted at the bedside. Grossly preserved LV ejection fraction. At least moderate aortic stenosis. Calcific aortic and mitral valves. CTA 02/11/2020 No pulmonary artery embolization or aortic dissection. Enlargement of the pulmonary arteries Focal consolidation volume loss noted in the lung bases posteriorly. Groundglass opacities. Chest x-ray 02/11/2020 1326 Mildly patchy peripheral opacities Impressions: Chest/Abdomen CTA 02/11/20 00:00 IMPRESSION: 1. No pulmonary artery embolization. No aortic dissection. 2. Enlargement of the pulmonary arteries raising the possibility pulmonary artery hypertension. In addition the heart size is enlarged and there is bilateral pleural effusions and findings suggestive of pulmonary edema. 3. Round glass opacification seen layering in a dependent fashion. This most likely is related to pulmonary edema viral pneumonia cannot be excluded. More focal consolidation and volume loss is noted in the lung bases posteriorly. Chest X-Ray 02/11/20 13:26 IMPRESSION: Mild patchy peripheral opacities in both lungs may represent infectious/ inflammatory process. Plan Discharge Plan: Initiate medical therapy with aspirin statin and beta-blockers Patient is currently chest pain-free We will continue to trend cardiac biomarkers. Patient has been accepted for cardiac catheterization at [place] on Wednesday. Meanwhile we will hold his warfarin anticoagulation that was indicated for pulmonary believes of a DVT. Will initiate enoxaparin in the next 24 hours.
--- NOTE | 2020-02-12 12:44 | EKG REPORT ---
SEVERITY:- ABNORMAL ECG - SINUS RHYTHM RIGHT BUNDLE BRANCH BLOCK DIFFUSE ST DEPRESSION : Confirmed by: Kenny Fuentes MD 12-Feb-2020 12:43:38
[2020-02-12 13:31] VITALS: BP 134/68
--- NOTE | 2020-02-12 21:53 | XCELERA REPORT ---
[address] [address] Transthoracic Echocardiogram Report Name: BRADLEY CORONADO Age: 79 yrs Gender: Male : 1940 Patient Status: Inpatient Patient Location: [place] [address]^A Study Date: 02/12/2020 10:12 AM History: NSTEMI Hypertension Height: 70 in Weight: 226 lb BSA: 2.2 m2 Procedure: A complete two-dimensional transthoracic echocardiogram was performed (2D, M-mode, spectral and color flow Doppler). Reason For Study: hypertensive emergency Ordering Physician: RADHA TUTTLE Performed By: Salomon Galvez Interpretation Summary Left ventricular systolic function is normal. The Ejection Fraction estimate is 55-60% The right ventricle is normal in size and function. There is a trace amount of mitral regurgitation There is moderate aortic stenosis There is a trace amount of tricuspid regurgitation There is no pericardial effusion. MMode/2D Measurements & Calculations RVDd: 3.2 cm LVIDd: 5.5 cm FS: 31.3 % Ao root diam: 3.8 cm IVSd: 1.0 cm LVIDs: 3.8 cm EDV(Teich): 150.0 ml Ao root area: 11.5 cm2 LVPWd: 1.0 cm ESV(Teich): 62.1 ml LA dimension: 5.4 cm EF(Teich): 58.6 % LVOT diam: 2.1 cm LVOT area: 3.6 cm2 Doppler Measurements & Calculations MV E max jamil: MV P1/2t max jamil: Ao V2 max: LV V1 max P.1 cm/sec 176.1 cm/sec 295.9 cm/sec 3.8 mmHg MV A max jamil: MV P1/2t: 57.0 msec Ao max PG: LV V1 mean P.0 cm/sec MVA(P1/2t): 3.9 cm2 35.0 mmHg 1.8 mmHg MV E/A: 3.1 MV dec slope: Ao V2 mean: LV V1 max: 206.8 cm/sec 97.4 cm/sec 905.2 cm/sec2 Ao mean PG: LV V1 mean: MV dec time: 0.25 sec 19.0 mmHg 63.1 cm/sec Ao V2 VTI: 62.4 cmLV V1 VTI: 21.3 cm LIBBY(I,D): 1.2 cm2 LIBBY(V,D): 1.2 cm2 SV(LVOT): 76.2 ml PA V2 max: TR max jamil: MV P1/2t-pr_phl: 86.4 cm/sec 200.7 cm/sec 57.0 msec PA max P.0 mmHg TR max P.1 mmHg Left Ventricle The left ventricle is mildly dilated. There is mild concentric left ventricular hypertrophy. Left ventricular systolic function is normal. The Ejection Fraction estimate is 55-60%. Doppler measurements suggest pseudonormalized left ventricular relaxation, which is associated with grade II/IV or mild to moderate diastolic dysfunction. Regional wall motion abnormalities cannot be excluded due to limited visualization. Right Ventricle The right ventricle is normal in size and function. Atria The right atrium is normal. The left atrium is moderately dilated. The interatrial septum is intact with no evidence for an atrial septal defect. There is no Doppler evidence for an interatrial shunt. Mitral Valve Calcified mitral apparatus. There is a trace amount of mitral regurgitation. Aortic Valve The aortic valve is moderately calcified. The aortic valve is sclerotic and shows some degree of functional abnormality. There is a peak gradient of 36 mm of Hg. There is moderate aortic stenosis. Mean PG=19 mm Hg AoV = 3.02 m/s LIBBY (VTI)= 1.18 cm2. Tricuspid Valve The tricuspid valve is normal in structure and function. There is no tricuspid stenosis. There is a trace amount of tricuspid regurgitation. Tricuspid regurgitation jet envelope not well defined to measure RV systolic pressure accurately. Pulmonic Valve The pulmonic valve is not well visualized. There is no pulmonic valvular stenosis. There is a trace amount of pulmonic regurgitation. Great Vessels The inferior vena cava appeared normal and decreased > 50% with respiration (RAP 5-10 mmHg). Effusions There is no pericardial effusion. : RADHA TUTTLE Anil
[2020-02-12] MEDS ORDERED: ATORVASTATIN CALCIUM 80 MG TABLET PO SCH (22:00)
== END 2020-02-12 14:08 | disposition short-term general hospital (02) | DRG 281 ==
LOC: ER 13:12 → EH 17:26 → UNDOADMIN 17:26 → EH 23:27
PROVIDERS: ADMIT Internal Medicine; ATTEND Hospitalist
DX: I21.4 Non-ST elevation (NSTEMI) myocardial infarction (principal); I16.1 Hypertensive emergency; I10 Essential (primary) hypertension; E11.9 Type 2 diabetes mellitus without complications; Z66 Do not resuscitate; E78.5 Hyperlipidemia, unspecified; G47.33 Obstructive sleep apnea (adult) (pediatric); F10.20 Alcohol dependence, uncomplicated; H54.40 Blindness, one eye, unspecified eye; I45.10 Unspecified right bundle-branch block; I35.0 Nonrheumatic aortic (valve) stenosis; Z86.711 Personal history of pulmonary embolism; Z79.84 Long term (current) use of oral hypoglycemic drugs; Z87.891 Personal history of nicotine dependence; Z79.01 Long term (current) use of anticoagulants
CPT/HCPCS: 36415; 71045; 71275; 80053; 80061; 82550; 82553; 82962; 83605; 83735; 83880; 84484; 85025; 85379; 85610; 86140; 87040; 87077; 87186; 93005; 93010; 93306; 94640; 96374; 96375; 99285; 0241U; C9803; J1815; J1940; J2270; J2405; J3490